=== PATIENT | male | born 1965 | race Caucasian/White ===

== ENCOUNTER 2020-01-06 15:28 | Emergency (ER) | payer MEDICAID ==
--- NOTE | 2020-01-06 15:46 | ER Document Report ---
ED Medical Screen (RME) - General Chief Complaint: Fall Stated Complaint: FALL/ RIB PAIN Time Seen by Provider: 01/06/20 15:37 Mode of Arrival: Ambulatory Information source: Patient Notes: 54-year-old male presented to ED for fall while stepping off of a trailer with a ladder in his hands. He states he landed across the trunk of the trailer and the ladder landed on the ground. He states he had severe shortness of breath for a while but now is just short of breath with chest pain and right rib pain. He states that extremely painful to take a deep breath. He does have diminished sounds on the right side. He is alert oriented states he does have a history of 2 neck surgeries for pinched nerve with plates and screws in his necks and he is also had his gallbladder removed. He denies use of tobacco alcohol or illicit drugs. I have greeted and performed a rapid initial assessment of this patient. A comprehensive ED assessment and evaluation of the patient, analysis of test results and completion of medical decision making process will be conducted by an additional ED providers. Physical Exam - Vital signs Vitals: Temp Pulse Resp BP Pulse Ox 97.8 F 70 18 137/80 H 100 01/06/20 15:33 01/06/20 15:33 01/06/20 15:33 01/06/20 15:33 01/06/20 15:33 Course - Vital Signs Vital signs: Temp Pulse Resp BP Pulse Ox 97.8 F 70 18 137/80 H 100 01/06/20 15:33 01/06/20 15:33 01/06/20 15:33 01/06/20 15:33 01/06/20 15:33
[2020-01-06] MEDS ORDERED: FLUMAZENIL INJ 0.5 MG/5 ML VIAL IV ONE (16:04)
[2020-01-06] MEDS ORDERED: BUMETANIDE INJ/PF 1 MG/4 ML SDV IV ONE (16:04)
[2020-01-06] MEDS ORDERED: NALOXONE HCL INJ/PF 0.4 MG/1 ML SDV IV ONE (16:04)
--- NOTE | 2020-01-06 16:43 | RADIOLOGY REPORT (SQ) ---
EXAM DESCRIPTION: RIBS RIGHT W/PA CHEST IMAGES COMPLETED DATE/TIME: 01/06/2020 3:06 pm REASON FOR STUDY: Fall right rib pain chest pain short of breath COMPARISON: None. TECHNIQUE: Frontal view of the chest and additional views of the right ribs acquired. NUMBER OF VIEWS: Five view. LIMITATIONS: None. FINDINGS: FRONTAL CXR: No pneumothorax. No pleural effusion. No atelectasis or infiltrates. RIBS: No displaced rib fractures. No lytic or blastic bony lesions. OTHER: No other significant finding. IMPRESSION: NO PNEUMOTHORAX. NO DISPLACED RIB FRACTURES. COMMENT: SITE OF TRAUMA/COMPLAINT MARKED/STAMP COMPLETED: NOT APPLICABLE. TECHNICAL DOCUMENTATION: JOB ID: [id number] 2010 [employer]- All Rights Reserved Reading location - IP/workstation name: [email or web address]
[2020-01-06] MEDS ORDERED: OXYCODONE-ACETAMINOPHEN 5-325 MG TABLET PO ONE (18:49)
--- NOTE | 2020-01-06 18:57 | ER Document Report ---
ED Fall - General Chief Complaint: Rib Pain Stated Complaint: FALL/ RIB PAIN Time Seen by Provider: 01/06/20 15:37 Primary Care Provider: GARCIA DIMAS FNP-C [Primary Care Provider] - Follow up as needed Mode of Arrival: Ambulatory Information source: Patient Notes: CHIEF COMPLAINT: Right chest wall injury HPI: 54-year-old male presenting to the emergency department complaining of right chest wall injury. Stepped off a trailer while carrying a ladder and fell landing on the ladder with the right ribs. Denies abdominal or flank pain. Complains of pain to the right chest wall. Denies other injuries or complaints ROS: See HPI - all other systems were reviewed and are otherwise negative Constitutional: no fever Eyes: no drainage, no blurred vision ENT: no runny nose, no sore throat Cardiovascular: Positive chest wall pain Resp: no SOB, no cough GI: no vomiting, no diarrhea, no abdominal pain : no dysuria Integumentary: no rash Allergy: no hives Musculoskeletal: no extremity pain or swelling Neurological: no numbness/tingling, no weakness MEDICATIONS: I agree with the patient medications as charted by the RN. ALLERGIES: I agree with the allergies as charted by the RN. PAST MEDICAL HISTORY/PAST SURGICAL HISTORY: Reviewed and agree as charted by RN. SOCIAL HISTORY: Reviewed and agree as charted by RN. FAMILY HISTORY: No significant familial comorbid conditions directly related to patient complaint EXAM: Reviewed vital signs as charted by RN. CONSTITUTIONAL: Alert and oriented and responds appropriately to questions. Well-appearing; well-nourished HEAD: Normocephalic; atraumatic EYES: PERRL; Conjunctivae clear, sclerae non-icteric ENT: normal nose; no rhinorrhea; moist mucous membranes; pharynx without lesions noted NECK: Supple without meningismus; non-tender; no cervical lymphadenopathy, no masses CARD: RRR; no murmurs, no clicks, no rubs, no gallops; symmetric distal pulses RESP: Normal chest excursion without splinting or tachypnea; breath sounds clear and equal bilaterally; no wheezes, no rhonchi, no rales, pulse oximetry 97% on room air not hypoxic. No visible flail or crepitus. No visible bruising to the chest wall. There is tenderness over the anterior and lateral lower rib cage on palpation ABD/GI: Normal bowel sounds; non-distended; soft, non-tender, no rebound, no guarding; no palpable organomegaly or masses. BACK: The back appears normal and is non-tender to palpation, there is no CVA tenderness EXT: Normal ROM in all joints; non-tender to palpation; no cyanosis, no effusions, no edema SKIN: Normal color for age and race; warm; dry; good turgor; no acute lesions noted NEURO: Moves all extremities equally; Motor and sensory function intact PSYCH: The patient's mood and manner are appropriate. Grooming and personal hygiene are appropriate. MDM: EKG normal sinus rhythm with a ventricular rate of 61 MI 136 QT 420 QTC 423. Borderline EKG interpreted by emergency department physician. No other visible ectopy. 54-year-old male injury to the right chest wall. Radiologist feels there is no rib fracture or pneumothorax. Has no abdominal tenderness. Will discharge home on pain management follow-up orthopedics. Incentive spirometer instructions given - Related data Allergies/Adverse Reactions: No Known Allergies Allergy (Unverified 01/06/20 19:03) Past Medical History - General Information source: Patient - Social History Smoking Status: Unknown if Ever Smoked Family History: Reviewed & Not Pertinent Physical Exam - Vital signs Vitals: Temp Pulse Resp BP Pulse Ox 97.8 F 70 18 137/80 H 100 01/06/20 15:33 01/06/20 15:33 01/06/20 15:33 01/06/20 15:33 01/06/20 15:33 Course - Vital Signs Vital signs: Temp Pulse Resp BP Pulse Ox 97.8 F 70 18 137/80 H 100 01/06/20 15:33 01/06/20 15:33 01/06/20 15:33 01/06/20 15:33 01/06/20 15:33 Discharge - Discharge Clinical Impression: Fall Qualifiers: Encounter type: initial encounter Qualified Code(s): W19.XXXA - Unspecified fall, initial encounter Chest wall contusion Qualifiers: Encounter type: initial encounter Laterality: right Qualified Code(s): S20.211A - Contusion of right front wall of thorax, initial encounter Condition: Stable Disposition: HOME, SELF-CARE Instructions: Chest Wall Pain ([facility]) Additional Instructions: 1. cool compresses to the chest wall for comfort 2. Naproxen for pain 3. return to the ED for any onset of shortness of breath or worsening condition 4. follow up with your primary care provider for further evaluation and treatment as needed 5. use the Incentive spirometer as instructed Prescriptions: Naproxen 500 mg PO BID PRN #14 tablet PRN Reason: Oxycodone HCl/Acetaminophen [Percocet 5-325 mg Tablet] 1 tab PO Q4H PRN #15 tab PRN Reason: Referrals: GARCIA DIMAS, [facility] REP-C [Primary Care Provider] - Follow up as needed
[2020-01-06 19:59] VITALS: BP 131/69
--- NOTE | 2020-01-07 07:31 | EKG REPORT ---
SEVERITY:- BORDERLINE ECG - SINUS RHYTHM PROBABLE LEFT ATRIAL ABNORMALITY NONSPECIFIC ST-T CHANGES- INFERIOR LEADS : Confirmed by: Ye Lay MD 07-Jan-2020 07:31:19
== END 2020-01-06 19:52 | disposition home or self-care (01) ==
LOC: ER 15:28
DX: S20.211A Contusion of right front wall of thorax, initial encounter (principal); W01.198A Fall on same level from slipping, tripping and stumbling with subsequent striking against other object, initial encounter
CPT/HCPCS: 93005; 93010; 99284

== ENCOUNTER 2020-01-19 17:07 | Emergency (ER) | payer MEDICAID ==
[2020-01-19] MEDS ORDERED: OXYCODONE-ACETAMINOPHEN 5-325 MG TABLET PO ONE (19:54)
--- NOTE | 2020-01-19 20:00 | ER Document Report ---
ED Medical Screen (RME) - General Stated Complaint: RIB/BACK PAIN,COUGH Time Seen by Provider: 01/19/20 19:50 Primary Care Provider: GARCIA DIMAS FNP-C [Primary Care Provider] - Follow up as needed Mode of Arrival: Ambulatory Information source: Patient Notes: Patient is a 54-year-old male who fell on his right ribs about 2 weeks ago and is coming in today because he still having lots and lots of pain in the right rib area and also in the abdomen just below that. He evidently came in and was checked out and his rib series was negative. And he was discharged home. He is having increased pain now. He has evidence of a large amount of bruising on the lower part of his abdomen. He is not having shortness of breath. General exam nontoxic-appearing Cardiac regular rate and rhythm Pulmonary clear to auscultation musculoskeletal tenderness to right lower anterior and posterior ribs. No crepitus. Abdomen tenderness over the right upper quadrant. Also large amount of bruising toward the right lower quadrant of the abdomen I have greeted and performed a rapid initial assessment of this patient. A comprehensive ED assessment and evaluation of the patient, analysis of test results and completion of the medical decision making process will be conducted by additional ED providers. - Related Data Allergies/Adverse Reactions: No Known Allergies Allergy (Unverified 01/06/20 19:03) Physical Exam - Vital signs Vitals: Temp Pulse Resp BP Pulse Ox 98.0 F 61 20 125/77 100 01/19/20 17:48 01/19/20 17:48 01/19/20 17:48 01/19/20 17:48 01/19/20 17:48 Course - Vital Signs Vital signs: Temp Pulse Resp BP Pulse Ox 98.0 F 61 20 125/77 100 01/19/20 17:48 01/19/20 17:48 01/19/20 17:48 01/19/20 17:48 01/19/20 17:48 Doctor's Discharge - Discharge Referrals: GARCIA DIMAS FNP-C [Primary Care Provider] - Follow up as needed
[2020-01-19 20:31] LABS: ABSOLUTE BASOPHILS # (AUTO) 0.1 10^3/uL (0.0-0.2); ABSOLUTE EOSINOPHILS # (AUTO) 0.3 10^3/uL (0.0-0.6); ABSOLUTE LYMPHOCYTES (AUTO) 1.5 10^3/uL (0.5-4.7); ABSOLUTE MONOCYTES (AUTO) 0.4 10^3/uL (0.1-1.4); ABSOLUTE NEUT (AUTO) 3.9 10^3/uL (1.7-8.2); BASOPHILS % (AUTO) 1.3 % (0-2); EOSINOPHILS % (AUTO) 4.9 % (0-6); HEMATOCRIT 43.8 % (37.9-51.0); HEMOGLOBIN 15.2 g/dL (13.5-17.0); LYMPHOCYTES % (AUTO) 23.7 % (13-45); MEAN CORPUSCULAR HEMOGLOBIN 29.1 pg (27.0-33.4); MEAN CORPUSCULAR HGB CONC 34.8 g/dL (32.0-36.0); MEAN CORPUSCULAR VOLUME 84 fl (80-97); MONOCYTES % (AUTO) 6.9 % (3-13); PLATELET COUNT 167 10^3/uL (150-450); RED BLOOD COUNT 5.23 10^6/uL (4.35-5.55); RED CELL DISTRIBUTION WIDTH 13.4 % (11.5-14.0); SEGMENTED NEUTROPHILS % (AUTO) 63.2 % (42-78); TOTAL CELLS COUNTED % (AUTO) 100 %; WHITE BLOOD COUNT 6.2 10^3/uL (4.0-10.5)
[2020-01-19 20:42] LABS: INTERNATIONAL RATION (INR) 0.95; PROTHROMBIN TIME 12.9 SEC (11.4-15.4)
[2020-01-19 20:43] LABS: PARTIAL THROMBOPLASTIN TIME 28.3 SEC (23.5-35.8)
[2020-01-19 20:45] LABS: ALBUMIN 4.4 g/dL (3.5-5.0); ALKALINE PHOSPHATASE 73 U/L (38-126); ANION GAP 8 (5-19); ASPARTATE AMINO TRANSFERASE 26 U/L (17-59); BILIRUBIN,TOTAL 0.6 mg/dL (0.2-1.3); BLOOD UREA NITROGEN 12 mg/dL (7-20); CALCIUM 9.4 mg/dL (8.4-10.2); CARBON DIOXIDE 31 mmol/L (22-30); CHLORIDE 101 mmol/L (98-107); GLUCOSE 97 mg/dL (75-110); POTASSIUM 4.7 mmol/L (3.6-5.0); TOTAL PROTEIN 7.2 g/dL (6.3-8.2)
--- NOTE | 2020-01-20 08:54 | ER Document Report ---
ED GI/ - General Chief Complaint: Abdominal Pain Stated Complaint: RIB/BACK PAIN,COUGH Time Seen by Provider: 01/19/20 19:50 Primary Care Provider: GARCIA DIMAS FNP-C [Primary Care Provider] - Follow up as needed Mode of Arrival: Ambulatory Information source: Patient Notes: 54-year-old male patient presenting to the emergency department chief complaint of right anterior rib pain and lower abdominal pain. Patient reports he was seen in this emergency department on 01/06/2020 after falling from a standing position striking his chest onto the tile of a trailer. Patient reports he had normal x-rays at that time. Patient reports this pain has only worsened since then. He reports he has associated shortness of breath. Denies any fever or chills. - Related Data Allergies/Adverse Reactions: No Known Allergies Allergy (Verified 01/19/20 20:24) Past Medical History - General Information source: Patient - Social History Smoking Status: Never Smoker Frequency of alcohol use: None Drug Abuse: None Family History: Reviewed & Not Pertinent Review of Systems - Review of Systems Musculoskeletal: See HPI Skin: See HPI -: Yes All other systems reviewed and negative Physical Exam - Vital signs Vitals: Temp Pulse Resp BP Pulse Ox 98.0 F 61 20 125/77 100 01/19/20 17:48 01/19/20 17:48 01/19/20 17:48 01/19/20 17:48 01/19/20 17:48 - Notes Notes: PHYSICAL EXAMINATION: GENERAL: Well-appearing, well-nourished and in mild distress. HEAD: Atraumatic, normocephalic. EYES: Pupils equal round and reactive to light, extraocular movements intact, sclera anicteric, conjunctiva are normal. ENT: Nares patent, oropharynx clear without exudates. Moist mucous membranes. NECK: Normal range of motion, supple without lymphadenopathy LUNGS: Breath sounds clear to auscultation bilaterally and equal. No wheezes rales or rhonchi. HEART: Regular rate and rhythm without murmurs ABDOMEN: Soft, nontender, nondistended abdomen. No guarding, no rebound. No masses appreciated. Musculoskeletal: Tenderness along the right anterior lower ribs. No crepitus or deformity. NEUROLOGICAL: Cranial nerves grossly intact. Normal speech, normal gait. Normal sensory, motor exams PSYCH: Normal mood, normal affect. SKIN: Ecchymosis noted to right lower quadrant and right flank. Course - Re-evaluation Re-evalutation: 01/20/20 11:26 Dr. Avelar went to the bedside to evaluate the patient. - Vital Signs Vital signs: Temp Pulse Resp BP Pulse Ox 97.6 F 55 L 16 110/69 100 01/20/20 10:55 01/20/20 10:55 01/20/20 10:55 01/20/20 10:55 01/20/20 10:55 - Laboratory Result Diagrams: 01/19/20 20:10 01/19/20 20:10 Laboratory results interpreted by me: 01/19/20 20:10 Carbon Dioxide 31 H Discharge - Discharge Clinical Impression: Rib fractures Qualifiers: Encounter type: initial encounter Rib fracture type: multiple ribs Fracture type: closed Laterality: right Qualified Code(s): S22.41XA - Multiple fractures of ribs, right side, initial encounter for closed fracture Condition: Stable Disposition: HOME, SELF-CARE Additional Instructions: Rib Injuries and Fractures You have been diagnosed as having either bruised or broken ribs. These two injuries are treated in the same way. It will usually take four to six weeks for these injured ribs to heal. Sometimes, rib belts or anesthetic injections of the chest wall help reduce the pain. If you are using a rib belt, you should cough or take a deep breath at least every hour or two to prevent lung complications. You should not engage in any strenuous physical activity until released by your physician. The usual rule is "if it hurts, don't do it." Rib fractures can lead to serious lung complications including lung colla pse, hemorrhage, and pneumonia. You should call the physician or return at once if any of the following occur: (1) Fever or chills. (2) Persistent cough, coughing up blood, or shortness of breath. (3) Increasing pain. (4) Weakness, lightheadedness, or fainting. Please take medications as prescribed. Use the incentive spirometer. I would like you to use this at least 4 times per day. Follow-up with your primary care provider in 3 to 5 days for recheck. Return to the emergency department if worsening. Prescriptions: Oxycodone HCl/Acetaminophen [Percocet 5-325 mg Tablet] 1 tab PO Q6HP PRN #16 tablet PRN Reason: Ibuprofen [Motrin 800 mg Tablet] 800 mg PO Q8H PRN #30 tab PRN Reason: Referrals: GARCIA DIMAS FNP-C [Primary Care Provider] - Follow up as needed
--- NOTE | 2020-01-20 10:30 | RADIOLOGY REPORT (SQ) ---
EXAM DESCRIPTION: CT ABD/PELVIS WITH IV ONLY IMAGES COMPLETED DATE/TIME: 01/20/2020 10:14 am REASON FOR STUDY: FELL ,INJURIES TO RT THORAX, RUQ PAIN COMPARISON: None. TECHNIQUE: CT scan of the abdomen and pelvis performed using helical scanning technique with dynamic intravenous contrast injection. No oral contrast. Images reviewed with lung, soft tissue, and bone windows. Reconstructed coronal and sagittal MPR images reviewed. Delayed images for evaluation of the urinary system also acquired. All images stored on PACS. All CT scanners at this facility use dose modulation, iterative reconstruction, and/or weight based d osing when appropriate to reduce radiation dose to as low as reasonably achievable (ALARA). [facility]: Dose Right [facility]: CareDose [facility]: Dose Right [facility]: Teradose 4D [facility]: [employer] RENAL FUNCTION: GFR > 60. RADIATION DOSE: . LIMITATIONS: None. FINDINGS: LOWER CHEST: See separate report of the CT of the chest. LIVER: Normal size. Fatty change. No masses. No dilated ducts. SPLEEN: Normal size. No focal lesions. PANCREAS: No masses. No significant calcifications. No adjacent inflammation or peripancreatic fluid collections. Pancreatic duct not dilated. GALLBLADDER: Surgically absent. ADRENAL GLANDS: No significant masses or asymmetry. RIGHT KIDNEY AND URETER: No solid masses. No significant calcifications. No hydronephrosis or hyd roureter. LEFT KIDNEY AND URETER: No solid masses. No significant calcifications. No hydronephrosis or hydr oureter. AORTA AND VESSELS: No aneurysm. No dissection. Renal arteries, SMA, celiac without stenosis. RETROPERITONEUM: No retroperitoneal adenopathy, hemorrhage or masses. BOWEL AND PERITONEAL CAVITY: No masses or inflammatory changes. No free fluid or peritoneal masses. APPENDIX: Normal. PELVIS: No mass. No free fluid. Normal bladder. ABDOMINAL WALL: No masses. No hernias. BONES: No significant or acute findings. OTHER: No other significant finding. IMPRESSION: No acute findings. TECHNICAL DOCUMENTATION: JOB ID: [id number] Quality ID # [id number]: Final reports with documentation of one or more dose reduction techniques (e.g., Au tomated exposure control, adjustment of the mA and/or kV according to patient size, use of iterative reconstruction technique) 2010 [employer]- All Rights Reserved Reading location - IP/workstation name: [email or web address]
--- NOTE | 2020-01-20 10:43 | RADIOLOGY REPORT (SQ) ---
EXAM DESCRIPTION: CT CHEST WITH IMAGES COMPLETED DATE/TIME: 01/20/2020 10:14 am REASON FOR STUDY: FELL ,INJURIES TO RT THORAX, RUQ PAIN COMPARISON: None. TECHNIQUE: CT scan of the chest performed using helical scanning technique with dynamic intravenous contrast injection. Images reviewed with lung, soft tissue and bone windows. Reconstructed coronal and sagittal MPR and MIP images reviewed. All images stored on PACS. All CT scanners at this facility use dose modulation, iterative reconstruction, and/or weight based d osing when appropriate to reduce radiation dose to as low as reasonably achievable (ALARA). [facility]: Dose Right [facility]: CareDose [facility]: Dose Right [facility]: Teradose 4D [facility]: [employer] CONTRAST TYPE AND DOSE: contrast/concentration: Isovue 350.00 mmol/ml; Total Contrast Delivered: 100 .0 ml; Total Saline Delivered: 38.0 ml RENAL FUNCTION: GFR > 60. RADIATION DOSE: CT Rad equipment meets quality standard of care and radiation dose reduction techniq ues were employed. CTDIvol: 19.7 - 24.5 mGy. DLP: 3381 mGy-cm. . LIMITATIONS: None. FINDINGS: LUNGS AND PLEURA: No opacities, nodules, masses. No pneumothorax. No effusions. HILAR AND MEDIASTINAL STRUCTURES: No identified masses or abnormal nodes. HEART AND VASCULAR STRUCTURES: No aneurysm or dissection. No central pulmonary emboli. No pericardi al effusion. HARDWARE: None in the chest. UPPER ABDOMEN: See separate report of the CT of the abdomen. THYROID AND OTHER SOFT TISSUES: No masses. No adenopathy. BONES: No significant finding. OTHER: No other significant finding. IMPRESSION: No acute findings in the chest. TECHNICAL DOCUMENTATION: JOB ID: [id number] Quality ID # [id number]: Final reports with documentation of one or more dose reduction techniques (e.g., Au tomated exposure control, adjustment of the mA and/or kV according to patient size, use of iterative reconstruction technique) 2010 [employer]- All Rights Reserved Reading location - IP/workstation name: [email or web address]
[2020-01-20 10:59] VITALS: BP 110/69
--- NOTE | 2020-01-20 11:33 | ER Document Report ---
Doctor's Note Notes: 01/20/20 11:30 This is a 54-year-old male I was asked to evaluate with nurse practitioner. This gentleman is basically healthy. 2 weeks ago he fell while lifting a ladder and struck the right side of his chest against the tongue of a trailer. He was evaluated in this emergency department and felt to possibly have rib fractures. Imaging at that time did not show any definite abnormalities. He was treated symptomatically with pain meds at home. He comes back in now saying that he is having increased bruising along the right lower abdominal wall and has persistent severe discomfort in his right anterolateral rib area aggravated by movement or deep breathing. I have reviewed the chart and imaging and reexamined the patient myself at the bedside. Prominent ecchymoses are noted over the pelvic brim on the right side. He has exquisite bony tenderness of multiple ribs on the right side. His vital signs are stable and he is oxygenating normally. He is afebrile. His chest is clear with symmetrical breath sounds although he is doing some splinting due to pain. CT with contrast chest abdomen and pelvis today all unremarkable. Clinically this man has multiple healing rib fractures on the right side. Suggest continued symptomatic management and outpatient follow-up with PMD. I talked with patient at some length about findings and recommendations. Findings, clinical impression and plan of treatment have been discussed with patient/family. Understanding of current findings and recommendations has been acknowledged by them and there is agreement regarding disposition and follow-up.
== END 2020-01-20 11:48 | disposition home or self-care (01) ==
LOC: ER 17:07
DX: S22.41XA Multiple fractures of ribs, right side, initial encounter for closed fracture (principal); S30.1XXA Contusion of abdominal wall, initial encounter; W19.XXXA Unspecified fall, initial encounter; Y93.89 Activity, other specified
CPT/HCPCS: 36415; 71260; 74177; 80053; 85025; 85610; 85730; 99285

== ENCOUNTER 2020-03-09 17:32 | Emergency (ER) | payer MEDICAID ==
[2020-03-09] MEDS ORDERED: TETRACAINE HCL 0.5% OPH SOLN 4 ML OU ONE (19:39)
--- NOTE | 2020-03-09 19:48 | ER Document Report ---
HPI - HPI Time Seen by Provider: 03/09/20 19:34 Notes: 54 year old male presents to the emergency room today for evaluation of his right eye after a piece of wood accidentally went into his eye while he was drilling a pool in the ceiling, states went between his glasses at 2:00 this afternoon. Reports he is having eye pain. Denies any other area of injury. Has not tried any iwax-qui-qtiqowx medications. Reports his pain is 3 out of 5, throbbing achy. Past Medical History - General Information source: Patient - Social History Smoking Status: Unknown if Ever Smoked Family History: Reviewed & Not Pertinent Vertical Provider Document - CONSTITUTIONAL Agree With Documented VS: Yes Exam Limitations: No Limitations General Appearance: WD/WN Notes: MEDICATIONS: I agree with the patient medications as charted by the RN. ALLERGIES: I agree with the allergies as charted by the RN. PAST MEDICAL HISTORY/PAST SURGICAL HISTORY: Reviewed and agree as charted by RN. SOCIAL HISTORY: Reviewed and agree as charted by RN. FAMILY HISTORY: No significant familial comorbid conditions directly related to patient complaint EXAM: Reviewed vital signs as charted by RN. PHYSICAL EXAMINATION:reviewed vital signs by RN GENERAL: Well-appearing, well-nourished and in no acute distress. HEAD: Atraumatic, normocephalic. EYES: Pupils equal round and reactive to light, extraocular movements intact, sclera anicteric, conjunctiva are normal. ENT: Nares patent, oropharynx clear without exudates. Moist mucous membranes. Fluostain wnl. PERRLA, normal accommodation, EMOI, peripheral vision bilaterally and equally. no exudates noted. red reflex wnl. fluostain negative for corneal abrasion, foreign body, dendrites, or ulcer on right and left noted corneal abrasion at 6:00 approximately 0.3 mm in length only. normal fundi and optic discs. Corneas grossly clear. No nystagmus bilaterally. No ptosis, photophobia. NECK: Normal range of motion, supple without lymphadenopathy LUNGS: Breath sounds clear to auscultation bilaterally and equal. No wheezes rales or rhonchi. HEART: Regular rate and rhythm without murmurs ABDOMEN: Soft, nontender, nondistended abdomen. No guarding, no rebound. No masses appreciated. Musculoskeletal: Normal range of motion, no pitting or edema. No cyanosis. NEUROLOGICAL: Cranial nerves grossly intact. Normal speech, normal gait. Normal sensory, motor exams PSYCH: Normal mood, normal affect. SKIN: Warm, Dry, normal turgor, no rashes or lesions noted. Course - Re-evaluation Re-evalutation: 03/09/20 19:55 Afebrile vital stable no distress. Nurses notes reviewed. Fluorescein stain negative for any acute foreign body, noted corneal abrasion on right at 6:00 approximately 3 mm in length. Discussed with patient that he does need to follow-up with occupational physician within the next 24 to 48 hours. Warm compress to site 20 minutes on 20 minutes off several times a day. Use antibiotic drops as directed as well as Systane ointment to help with corneal abrasion. Alternate between Tylenol and ibuprofen for pain control. After performing a Medical Screening Examination, I estimate there is LOW risk for a RETAINED CORNEAL or LID FOREIGN BODY, DEEP SPACE INFECTION (e.g., ORBITAL CELLULITIS OR ABSCESS), ACUTE GLAUCOMA, PENETRATING GLOBE INJURY, RETINAL DETACHMENT, or MENINGITIS thus I consider the discharge disposition reasonable. I have reevaluated this patient multiple times and no significant life threatening changes are noted. Also, there is no evidence or peritonitis, sepsis, or toxicity. The patient and I have discussed the diagnosis and risks, and we agree with discharging home with outpatient follow-up with the understanding that symptoms and presentations can change. We also discussed returning to the Emergency Department immediately if new or worsening symptoms occur. We have discussed the symptoms which are most concerning (e.g., changing or worsening pain, vision changes, neck stiffness or fever) that necessitate immediate return. - Vital Signs Vital signs: Temp Pulse Resp BP Pulse Ox 98.1 F 72 16 118/68 97 03/09/20 17:53 03/09/20 17:53 03/09/20 17:53 03/09/20 17:53 03/09/20 17:53 - Laboratory Results Critical Laboratory Results Reviewed: No Critical Results - Radiology Results Critical Radiology Results Reviewed: No Critical Results Discharge - Discharge Clinical Impression: Right corneal abrasion Condition: Stable Disposition: HOME, SELF-CARE Instructions: Corneal Abrasion ([facility]), Conjunctival Foreign Body ([facility]) Additional Instructions: You have a corneal abrasion. This should improve in the next several days. You should apply the eye drops to the affected eye 3 times daily. Use the ointment to the lower part of your conjunctive, you can apply every 2 hours and then you can use paper tape to keep your eye shut so it can heal. follow-up with your eye doctor at your earliest ability. Return if you have decreased vision, worsening pain, increased drainage from the eye, you notice redness or puffiness around the eye, you develop a fever greater than 101F, or you have any other symptoms that are concerning to you. Prescriptions: Mineral Oil/Petrolatum,White [Systane Nighttime Eye Oint] 3.5 gm OP Q2HP PRN #1 oint...g. PRN Reason: Polymyxin B Sulfate/Tmp [Polytrim Oph Soln 10 ml] 1 drop OP ASDIR PRN #1 bottle PRN Reason: Referrals: GARCIA DIMAS FNP-C [Primary Care Provider] - Follow up as needed OZZY BRASHER DO [ACTIVE STAFF] - Follow up tomorrow
[2020-03-09 19:52] VITALS: BP 118/75
== END 2020-03-09 19:51 | disposition home or self-care (01) ==
LOC: ER 17:32
DX: S05.01XA Injury of conjunctiva and corneal abrasion without foreign body, right eye, initial encounter (principal); W22.8XXA Striking against or struck by other objects, initial encounter; Y93.89 Activity, other specified
CPT/HCPCS: 99283; J3490